=== PATIENT | female | born 1950 | race Caucasian/White ===

== ENCOUNTER 2016-06-28 14:12 | Emergency (ER) | payer OTHER, MEDICARE ==
[~2016-06-28 14:12] MED LIST: ACCOLATE20 MG PO; CARDIZEM CD180 MG PO; CORTEF10 MG PO; DIFLUCAN200 MG PO; DIGITEK125 MCG PO; DUONEB 2.5-0.5M1 AMP INH; ELIQUIS2.5 MG PO; FEOSOL325 MG PO; FLONASE ALLER15.8 ML; FLORASTOR250 MG PO; K-DUR20 MEQ PO; LASIX40 MG PO; LEVAQUIN750 MG PO; NEURONTIN600 MG PO; NEXIUM 40MG CAP40 MG PO; OSPHENA60 MG PO; PERCOCET 10/321 EACH PO; PHILLIPS' MILK311 MG PO; PREDNISONE 10MG10 MG PO; PROVENTIL HFA6.7 GM INH; SYMBICORT 1601 PUFFS INH; ZOFRAN4 MG PO; ZORVOLEX18 MG PO
[2016-06-28 15:45] LABS: BASOPHIL 1.6 % (0-2); EOSINOPHIL 0.1 % (0-7); HCT 33.9 % (37.0-47.0); HGB 10.2 g/dl (12.5-16.0); MCH 30.3 pg (25.0-31.0); MCHC 30.1 g/dL (32.0-36.0); MCV 100.6 fL (78.0-100.0); MONOCYTE 7.1 % (0-12); MPV 10.1 fL (6.0-9.5); NEUTROPHIL 81.2 % (41-80); PLT 194 K/uL (150-400); RBC 3.37 M/uL (4.20-5.40); RDW 18.7 % (11.5-14.0)
[2016-06-28 15:46] LABS: BILIRUBIN NEGATIVE (NEGATIVE); BLOOD NEGATIVE Ery/uL (NEGATIVE); CLARITY CLEAR (CLEAR); COLOR YELLOW (YELLOW); GLUCOSE (U) 3+ mg/dL (NORMAL); KETONE (U) NEGATIVE (NEGATIVE); LEUKOCYTES NEGATIVE Leu/uL (NEGATIVE); NITRITE NEGATIVE (NEGATIVE); PROTEIN NEGATIVE (NEGATIVE); SPECIFIC GRAVITY 1.015 (1.001-1.030); UROBILINOGEN 0.2 mg/dL (0.2-1.0)
[2016-06-28 16:03] LABS: CREATININE 0.5 mg/dL (0.5-1.0); POTASSIUM 4.7 mmol/L (3.5-5.1); WBC 10.4 K/uL (4.0-10.5)
== END 2016-06-28 18:16 | disposition home or self-care (01) ==
LOC: FER 14:12
PROVIDERS: Emergency Medicine
DX: E11.40 Type 2 diabetes mellitus with diabetic neuropathy, unspecified (principal); E11.65 Type 2 diabetes mellitus with hyperglycemia; I11.9 Hypertensive heart disease without heart failure; J45.909 Unspecified asthma, uncomplicated; I48.91 Unspecified atrial fibrillation; K21.9 Gastro-esophageal reflux disease without esophagitis; F32.9 Major depressive disorder, single episode, unspecified; Z99.81 Dependence on supplemental oxygen
CPT/HCPCS: 36415; 36600; 70450; 70551; 71010; 80048; 81003; 82009; 82803; 83036; 84484; 85025; 93005

== ENCOUNTER 2016-07-07 08:10 | Inpatient (IN) | payer OTHER, MEDICARE ==
[2016-07-07 08:54] LABS: BASOPHIL 0.7 % (0-2); EOSINOPHIL 0.3 % (0-7); HCT 34.3 % (37.0-47.0); LYMPHOCYTE 14.8 % (15-48); MCH 29.8 pg (25.0-31.0); MCHC 29.2 g/dL (32.0-36.0); MCV 102.1 fL (78.0-100.0); MONOCYTE 10.6 % (0-12); MPV 9.2 fL (6.0-9.5); NEUTROPHIL 73.6 % (41-80); PLT 298 K/uL (150-400); RBC 3.36 M/uL (4.20-5.40); RDW 18.7 % (11.5-14.0); WBC 9.7 K/uL (4.0-10.5)
[2016-07-07 09:15] LABS: ALBUMIN 3.5 g/dL (3.4-4.8); BILIRUBIN - TOTAL 0.3 mg/dL (0.1-1.0); CREATININE 0.7 mg/dL (0.5-1.0); GLOBULIN (CALCULATION) 2.3 g/dL (2.2-4.2); TOTAL PROTEIN 5.8 g/dL (6.4-8.3)
[2016-07-07 09:17] LABS: LACTIC ACID 2.6 mmol/L (0.5-2.2)
[2016-07-07 09:51] LABS: BILIRUBIN NEGATIVE (NEGATIVE); BLOOD NEGATIVE Ery/uL (NEGATIVE); CLARITY CLEAR (CLEAR); COLOR YELLOW (YELLOW); GLUCOSE (U) NORMAL (NORMAL); KETONE (U) NEGATIVE (NEGATIVE); LEUKOCYTES NEGATIVE Leu/uL (NEGATIVE); NITRITE NEGATIVE (NEGATIVE); PROTEIN NEGATIVE (NEGATIVE); UROBILINOGEN 0.2 mg/dL (0.2-1.0)
[2016-07-07 15:07] LABS: CKMB 1.63 ng/mL (0.97-4.94); TROPONIN T < 0.010 ng/mL
[2016-07-08 04:20] LABS: HCT 29.5 % (37.0-47.0); HGB 8.8 g/dl (12.5-16.0); MCHC 29.8 g/dL (32.0-36.0); MCV 100.7 fL (78.0-100.0); MPV 9.3 fL (6.0-9.5); RBC 2.93 M/uL (4.20-5.40); RDW 17.9 % (11.5-14.0); WBC 5.2 K/uL (4.0-10.5)
[2016-07-08 04:40] LABS: CREATININE 0.7 mg/dL (0.5-1.0); POTASSIUM 3.4 mmol/L (3.5-5.1)
[2016-07-09 03:58] LABS: BASOPHIL 0.4 % (0-2); EOSINOPHIL 0 % (0-7); HCT 26.4 % (37.0-47.0); MCH 30.4 pg (25.0-31.0); MCHC 30.3 g/dL (32.0-36.0); MCV 100.4 fL (78.0-100.0); MONOCYTE 8.8 % (0-12); MPV 9.2 fL (6.0-9.5); NEUTROPHIL 82.8 % (41-80); PLT 308 K/uL (150-400); RBC 2.63 M/uL (4.20-5.40); RDW 17.7 % (11.5-14.0); WBC 11.3 K/uL (4.0-10.5)
[2016-07-10 04:36] LABS: BASOPHIL 0.2 % (0-2); EOSINOPHIL 0 % (0-7); HCT 28.4 % (37.0-47.0); HGB 8.4 g/dl (12.5-16.0); LYMPHOCYTE 7.7 % (15-48); MCHC 29.6 g/dL (32.0-36.0); MCV 101.4 fL (78.0-100.0); MPV 8.9 fL (6.0-9.5); NEUTROPHIL 83.1 % (41-80); PLT 330 K/uL (150-400); RDW 17.7 % (11.5-14.0); WBC 9.8 K/uL (4.0-10.5)
[2016-07-10 04:52] LABS: CREATININE 0.7 mg/dL (0.5-1.0); MAGNESIUM 2.06 mg/dL (1.40-2.10)
[2016-07-10 14:44] LABS: IRON 51 ug/dL (44-196); IRON % SATURATION 21 %SAT (20-50); TIBC (TOTAL IRON + UIBC) 248 U/L (228-428); UIBC 197 ug/dL (112-346)
[2016-07-10 15:04] LABS: FOLIC ACID (SERUM) 17.1 ng/mL (5.6-45.8)
[2016-07-11 04:28] LABS: HGB 8.4 g/dl (12.5-16.0); MPV 9.2 fL (6.0-9.5); RBC 2.8 M/uL (4.20-5.40); RDW 17.5 % (11.5-14.0); WBC 10.5 K/uL (4.0-10.5)
[2016-07-11 04:40] LABS: CREATININE 0.6 mg/dL (0.5-1.0)
[2016-07-11] MEDS ORDERED: LYRICA25 MG PO (18:00)
[2016-07-11] MEDS ORDERED: ZYVOX600 MG PO (18:17)
[2016-07-11] MEDS ORDERED: AMARYL2 MG PO (18:18)
[2016-07-11] MEDS ORDERED: AZITHROMYCIN500 MG PO (18:18)
[2016-07-13 10:48] LABS: HCT 31.4 % (37.0-47.0); HGB 9.3 g/dl (12.5-16.0); MCH 30.3 pg (25.0-31.0); MCHC 29.6 g/dL (32.0-36.0); MCV 102.3 fL (78.0-100.0); RBC 3.07 M/uL (4.20-5.40); RDW 17.6 % (11.5-14.0); WBC 13.4 K/uL (4.0-10.5)
[2016-07-13 11:04] LABS: CREATININE 0.7 mg/dL (0.5-1.0); POTASSIUM 3.6 mmol/L (3.5-5.1)
[2016-07-14 05:52] LABS: HCT 30.2 % (37.0-47.0); HGB 8.9 g/dl (12.5-16.0); MCH 30.1 pg (25.0-31.0); MCHC 29.5 g/dL (32.0-36.0); MPV 9.1 fL (6.0-9.5); RBC 2.96 M/uL (4.20-5.40); RDW 17.5 % (11.5-14.0); WBC 9.6 K/uL (4.0-10.5)
[2016-07-14 06:14] LABS: CREATININE 0.7 mg/dL (0.5-1.0)
[2016-07-14 06:27] LABS: POTASSIUM 3.9 mmol/L (3.5-5.1)
== END 2016-07-14 12:42 | DRG 871 ==
LOC: FER 08:10 → FTCU 10:50 → FMS 07-08 16:37
PROVIDERS: Internal Medicine; Internal Medicine Nephrology; ADMIT Internal Medicine
DX: A41.9 Sepsis, unspecified organism (principal); J18.9 Pneumonia, unspecified organism; I50.32 Chronic diastolic (congestive) heart failure; L89.622 Pressure ulcer of left heel, stage 2; L89.612 Pressure ulcer of right heel, stage 2; I48.0 Paroxysmal atrial fibrillation; J44.1 Chronic obstructive pulmonary disease with (acute) exacerbation; D50.9 Iron deficiency anemia, unspecified; E11.9 Type 2 diabetes mellitus without complications; Y95 Nosocomial condition; J45.909 Unspecified asthma, uncomplicated; F41.9 Anxiety disorder, unspecified; F32.9 Major depressive disorder, single episode, unspecified; E04.2 Nontoxic multinodular goiter; M19.90 Unspecified osteoarthritis, unspecified site; M81.0 Age-related osteoporosis without current pathological fracture; D36.7 Benign neoplasm of other specified sites; K21.9 Gastro-esophageal reflux disease without esophagitis; Z88.6 Allergy status to analgesic agent; Z88.8 Allergy status to other drugs, medicaments and biological substances; Z91.040 Latex allergy status; Z82.3 Family history of stroke; Z83.3 Family history of diabetes mellitus; Z80.8 Family history of malignant neoplasm of other organs or systems; Z80.3 Family history of malignant neoplasm of breast
CPT/HCPCS: 36415; 36600; 71010; 71020; 80048; 80053; 80162; 80202; 81003; 82550; 82553; 82607; 82728; 82746; 82803; 82962; 83540; 83550; 83605; 83690; 83735; 83880; 84484; 85025; 86403; 87040; 87070; 87077; 87186; 87205; 93005; 94640; 97110; 97116; 97163; 97167; 97530; 97530-GP; 97535; J1170; J1940; J2020; J2405; J2543; J2930; J3370

== ENCOUNTER 2016-09-03 12:41 | Inpatient (IN) | payer OTHER, MEDICARE ==
[~2016-09-03] VITALS: Ht 154.9 cm; Wt 52.6 kg
[~2016-09-03 12:41] MED LIST changes: +AMARYL2 MG PO; +AZITHROMYCIN500 MG PO; +LYRICA25 MG PO; +ZYVOX600 MG PO
[2016-09-03 14:01] LABS: BASOPHIL 0.4 % (0-2); EOSINOPHIL 2.8 % (0-7); HGB 9.7 g/dl (12.5-16.0); LYMPHOCYTE 15.8 % (15-48); MCH 28.4 pg (25.0-31.0); MCHC 29.4 g/dL (32.0-36.0); MCV 96.8 fL (78.0-100.0); MONOCYTE 13.2 % (0-12); MPV 10.2 fL (6.0-9.5); NEUTROPHIL 67.8 % (41-80); PLT 341 K/Ul (150-400); RBC 3.41 M/uL (4.20-5.40); RDW 15.3 % (11.5-14.0); WBC 7.1 K/uL (4.0-10.5)
[2016-09-03 14:14] LABS: BILIRUBIN - TOTAL 0.2 mg/dL (0.1-1.0); CREATININE 1.1 mg/dL (0.5-1.0); GLOBULIN (CALCULATION) 2.9 g/dL (2.2-4.2); TOTAL PROTEIN 5.9 g/dL (6.4-8.3)
[2016-09-03 14:15] LABS: LACTIC ACID 1.4 mmol/L (0.5-2.2)
[2016-09-03 14:21] LABS: BILIRUBIN NEGATIVE (NEGATIVE); BLOOD NEGATIVE Ery/uL (NEGATIVE); CLARITY CLEAR (CLEAR); COLOR YELLOW (YELLOW); GLUCOSE (U) NORMAL (NORMAL); KETONE (U) NEGATIVE (NEGATIVE); LEUKOCYTES NEGATIVE Leu/uL (NEGATIVE); NITRITE NEGATIVE (NEGATIVE); PROTEIN NEGATIVE (NEGATIVE); UROBILINOGEN 0.2 mg/dL (0.2-1.0)
[2016-09-04 08:32] LABS: CREATININE 0.8 mg/dL (0.5-1.0); POTASSIUM 4.1 mmol/L (3.5-5.1)
[2016-09-05 05:15] LABS: HCT 29.6 % (37.0-47.0); MCH 28.2 pg (25.0-31.0); MCHC 30.4 g/dL (32.0-36.0); MCV 92.8 fL (78.0-100.0); MPV 9.8 fL (6.0-9.5); RBC 3.19 M/uL (4.20-5.40); RDW 14.7 % (11.5-14.0); WBC 8.4 K/uL (4.0-10.5)
[2016-09-05 05:27] LABS: CREATININE 0.7 mg/dL (0.5-1.0); POTASSIUM 4.2 mmol/L (3.5-5.1)
[2016-09-06 04:13] LABS: HCT 29.7 % (37.0-47.0); MCH 28.3 pg (25.0-31.0); MCHC 30.3 g/dL (32.0-36.0); MCV 93.4 fL (78.0-100.0); MPV 9.8 fL (6.0-9.5); RBC 3.18 M/uL (4.20-5.40); RDW 14.9 % (11.5-14.0); WBC 14.1 K/uL (4.0-10.5)
[2016-09-06 04:35] LABS: CREATININE 0.7 mg/dL (0.5-1.0); POTASSIUM 4.2 mmol/L (3.5-5.1)
== END 2016-09-06 14:08 | disposition home health service (06) | DRG 871 ==
LOC: FER 12:41 → FTCU 17:10 → FMS 09-05 11:57
PROVIDERS: Allergy & Immunology; Nurse Practitioner; ADMIT Internal Medicine
DX: A41.9 Sepsis, unspecified organism (principal); J15.9 Unspecified bacterial pneumonia; J96.00 Acute respiratory failure, unspecified whether with hypoxia or hypercapnia; J96.02 Acute respiratory failure with hypercapnia; E87.2 Acidosis; I48.0 Paroxysmal atrial fibrillation; I50.32 Chronic diastolic (congestive) heart failure; E27.40 Unspecified adrenocortical insufficiency; J47.9 Bronchiectasis, uncomplicated; F41.8 Other specified anxiety disorders; M54.5 Low back pain; M19.90 Unspecified osteoarthritis, unspecified site; Z79.01 Long term (current) use of anticoagulants; Z79.82 Long term (current) use of aspirin; M81.0 Age-related osteoporosis without current pathological fracture; K21.9 Gastro-esophageal reflux disease without esophagitis; R53.82 Chronic fatigue, unspecified; Z90.710 Acquired absence of both cervix and uterus; Z88.6 Allergy status to analgesic agent; Z88.5 Allergy status to narcotic agent; Z88.8 Allergy status to other drugs, medicaments and biological substances; Z91.040 Latex allergy status; E86.0 Dehydration
CPT/HCPCS: 36415; 36600; 71020; 71275; 80048; 80053; 80202; 81003; 82803; 82962; 83605; 84145; 85025; 85379; 87040; 87088; 94640; 94660; 97110; 97116; 97163; 97166; 97530-GP; 97535; J1956; J2543; J2930; Q9967